=== PATIENT | female | born 1950 | race African-American/Black ===

== ENCOUNTER 2019-04-26 11:37 | Day surgery (SDC) | payer OTHER ==
[~2019-04-26 11:37] MED LIST: ACETAMINOPHEN 1,000 MG/100 ML BTL IVPB ONE; CEFAZOLIN 2 Gram 2 GM/50 ML BAG IVPB ONE
[2019-04-26] MEDS ORDERED: MIDAZOLAM HCL 2MG/2ML VIAL IV ONE (11:38)
[2019-04-26] MEDS ORDERED: SEVOFLURANE 250 ML INH ONE (11:38)
[2019-04-26] MEDS ORDERED: KETOROLAC 30 MG/ML VIAL IVP ONE (11:38)
[2019-04-26] MEDS ORDERED: LIDOCAINE 2% MDV (20MG/ML) 20ML VIAL IV ONE (11:38)
[2019-04-26] MEDS ORDERED: PROPOFOL 10 MG/ML VIAL IV ONE (11:38)
[2019-04-26] MEDS ORDERED: RINGERS SOLUTION,LACTATED 1,000 ML IV ONE (11:48)
[2019-04-26] MEDS ORDERED: BUPIVACAINE 0.5% W/EPI MPF 30 ML VIAL SQ ONE (14:45)
--- NOTE | 2019-05-04 19:54 | Operative Note ---
DATE: 04/26/2019. PREOPERATIVE DIAGNOSIS: SPUR AND BURSITIS, RIGHT ELBOW. POSTOPERATIVE DIAGNOSIS: SPUR AND BURSITIS, RIGHT ELBOW. PROCEDURES: 1. EXCISION OF BURSA. 2. OSTECTOMY OF SPUR OF THE ULNA. SURGEON: Jose Muller M.D. ANESTHESIA: Local sedation. ANESTHESIOLOGIST: Eva Navarrete CRNA. COMPLICATIONS: None. BLOOD LOSS: Minimal. OPERATIVE FINDINGS: Moderate-sized spur projecting into the triceps insertion. C-arm images revealed preoperative spur and post complete resection of spur. INDICATIONS FOR OPERATION: This is a 69-year-old female who has had persistent pain in her elbow for several years. She has failed nonoperative treatment. The preoperative x-ray showed a large spur in the olecranon, and she had bursitis there. She has scheduled for excision. I explained the risks and benefits of surgery in detail for her diagnosis and procedures including but not limited to infection, nerve injury, vessel injury, persistent pain and dysfunction, numbness and tingling in her elbow, recurrence of bursitis, the need for further procedures, and recurrence of the spur. All of her questions were answered. Her treatment and course were outlined, and she agreed to proceed. DESCRIPTION OF PROCEDURE: The patient was placed on the operating table and was placed in the supine position. She was prepped for surgery. Sedation was given. Her right upper extremity and elbow were prepped and draped in a sterile fashion. The right elbow was prepped again with ChloraPrep. Intraoperative time out was performed. Next, we brought the the elbow and arm table and brought the C-arm. Identified the spur and made a small incision just radial to the midline posteriorly. Infiltrated 0.5% Marcaine with epinephrine. The skin was subcutaneously dissected down medially, and the bursa was evident. Resected all of the bursa around the periphery and the prominent spur. Next, we shelled the spur out from the triceps insertion and to the proximal edge of the olecranon. We then localized the resection point with our osteotome and C-arm to remove the spur at its base. We then inserted that and tapped the osteotome with a mallet and removed the spur. We then smoothed off the proximal edge of the olecranon and rounded it off with a rongeur. Took the final images which showed complete resection of the spur. Irrigated copiously. The majority of the triceps tendon was still intact. There was a small area centrally where we shelled out the spur. We then closed with 0 Vicryl figure of 8 side to side. Irrigated copiously and closed with #2- 0 Vicryl and 3-0 nylon. Infiltrated more with 0.5% Marcaine with epinephrine. Placed a sterile dressing and Ryan wrap and placed in a sling. The patient tolerated the procedure well with no intraoperative complications. Sponge, needle, and blade counts were correct. She was taken to the recovery room stable and neurovascularly intact. She will be discharged as an outpatient and she will follow up in two weeks. Dictation Number: [id number] cc: Dr. Bal ASHLEY
== END 2019-04-26 15:41 | disposition home or self-care (01) ==
LOC: SUR 11:37
PROVIDERS: ATTEND Orthopaedic Surgery
DX: M25.721 Osteophyte, right elbow (principal); M71.521 Other bursitis, not elsewhere classified, right elbow; I10 Essential (primary) hypertension; K21.9 Gastro-esophageal reflux disease without esophagitis
CPT/HCPCS: 76942; J1885; J7120